=== PATIENT | male | born 1990 | race Caucasian/White ===

== ENCOUNTER 2018-07-03 12:31 | Emergency (ER) | payer BC, OTHER ==
[~2018-07-03] VITALS: Ht 182.9 cm; Wt 69.0 kg
--- NOTE | 2018-07-03 13:05 | NUR ---
patient arrives to the er with what sounds like a uti possible kidney infection; he was diagnosed one week ago with a uti and took full course of keflex. then, after he finished keflex he states the uti got worse and has new symptoms feeling like he has acid for urine with a strong burning, he has flank and kidney pain, and states he almost passed out today at md's office. he states urine red and dark. attempting to get urine sample, gowned, and then on monitor.
--- NOTE | 2018-07-03 13:26 | NUR ---
URINE SENT. LABELED IN PRESENCE OF PATIENT. CLOUDY DARK URINE
[2018-07-03 13:44] LABS: CULTURE INDICATED? YES; MICROSCOPIC INDICATED
--- NOTE | 2018-07-03 13:56 | NUR ---
PATIENT AWAITING ED WORKUP. REPORT TO KENNETH FOR LUNCH
[2018-07-03 14:09] LABS: ALBUMIN 4.3 g/dL (3.4-5.0); ANION GAP 7 mmol/L (5-15); CALCIUM 9.1 mg/dL (8.5-10.1); CHLORIDE 106 mmol/L (98-107); CREATININE 0.96 mg/dL (0.7-1.3)
[2018-07-03 14:13] LABS: BASOPHILS # (AUTO) 0.01 x10^3/uL (0-0.1); BASOPHILS % (AUTO) 0 % (0-1); EOSINOPHILS # (AUTO) 0.03 x10^3/uL (0-0.4); EOSINOPHILS % (AUTO) 0 % (1-7); LYMPHOCYTES # (AUTO) 1.07 x10^3/uL (1-3.4); LYMPHOCYTES % (AUTO) 15 % (22-44); MD NO; MEAN CORPUSCULAR HEMOGLOBIN 30.7 pg (27.5-34.5); MEAN CORPUSCULAR HGB CONC 33.6 g/dL (33.2-36.2); MEAN CORPUSCULAR VOLUME 91.5 fL (81-97); MONOCYTES # (AUTO) 0.54 x10^3/uL (0.2-0.8); MONOCYTES % (AUTO) 8 % (2-9); NEUTROPHILS # (AUTO) 5.42 x10^3/uL (1.8-6.8); NEUTROPHILS % (AUTO) 77 % (42-75); PLATELET COUNT 173 x10^3/uL (130-400); RED BLOOD COUNT 5.09 x10^6/uL (4.38-5.82); RED CELL DISTRIBUTION WIDTH 12.1 % (9.4-14.8)
[2018-07-03] MEDS ORDERED: CEFTRIAXONE 250 MG ONE (14:55)
[2018-07-03] MEDS ORDERED: AZITHROMYCIN 500 MG TABLET ONE (14:55)
[2018-07-03] MEDS ORDERED: AZITHROMYCIN 500 MG TABLET PO ONE (15:00)
[2018-07-03] MEDS ORDERED: CEFTRIAXONE 1,000 MG IM ONE (15:00)
[2018-07-03 15:01] VITALS: BP 149/90
--- NOTE | 2018-07-03 15:03 | NUR ---
DISCHARGE TEACHING REVIEWED, SHOWS UNDERSTANDING
== END 2018-07-03 15:04 | disposition home or self-care (01) ==
LOC: ED 13:38
DX: N30.91 Cystitis, unspecified with hematuria (principal); N34.2 Other urethritis
CPT/HCPCS: 36415; 80048; 81001; 82040; 85025; 87077; 87086; 87491; 87591; 96372; 99283; J0696; 87186